=== PATIENT | male | born 1940 | race Caucasian/White ===

== ENCOUNTER → 2017-07-15 | Outpatient (CLI) | payer OTHER, MEDICARE, BC ==
[~2017-07-15] MED LIST: ACET-2146 PO; ASP325 PO; ATOR20TA22 PO; CA C1TAB6 PO; CA C1TAB93 PO; CALC-649 PO; CEL100 PO; CELE-1 PO; DICL100G39 TP; FINA5TAB67 PO; FLU IM; FLUT16SP19 NS; FOLI-48 PO; FURO-45 PO; GABA-547 PO; HCTZ25 PO; HYDR-3087 PO; HYDR-393 PO; HYDR-4305 PO; LAN30PT PO; LANS15CA28 PO; LANS15CA38 PO; LEVO150T72 PO; LEVO150T78 PO; LEVO75TA68 PO; LIDO10VI16 INTRA-ART; LOS50 PO; LOSA-57 PO; MAGN250T25 PO; MELO-207 PO; MULT-27 PO; MULT-772 PO; NAP250 PO; OMEP-125 PO; OXYB10TA16 PO; OXYB5TAB86 PO; POTA15TA; POTA8TAB41 PO; PRE5 PO; PRED-1 PO; PRED20TA6 PO; PROM-110 PO; PROM12.556 PO; SIMV-54 PO; TAMS0.4C70 PO; TOLT4CAP13 PO; TRAM-420 PO; TRI40I IART; VIT E PO; VIT1TABL91 PO; VITA-175 PO; [UNRECOGNIZED DRUG - CODE] PO
--- NOTE | 2017-07-15 11:06 | RADIOLOGY IMAGING REPORT ---
FACILITY: [facility] PATIENT NAME: Sammy Downey : 1940 MR: [id number] V: [id number] EXAM DATE: ORDERING PHYSICIAN: SEA RUIZ TECHNOLOG[place] [facility] [place]my [place] : 1940 Visit/Account:[id number] Date of Sevice: 07/15/2017 EXAMINATION: MRI lumbar spine without IV contrast HISTORY: Low back pain and left lower extremity radiculopathy. COMPARISON: Lumbar and thoracic spine MRIs from 07/20/2013. TECHNIQUE: Multi-planar, multi-sequence lumbar spine MRI was performed without intravenous contrast administration. FINDINGS: Alignment: Grade 1 anterolisthesis at T12-L1 measuring 4 mm, and grade 1 retrolisthesis at L2-3 measu ring 4 mm, unchanged. Vertebral marrow signal: Mild degenerative endplate changes at a few levels. Distal thoracic cord: Increased T2/STIR signal in the thoracic cord at T10-11 is more prominent. Conus: negative, terminates at T12-L1. Cauda equina: There is clumping of the cauda equina nerve roots in the thecal sac from L4 inferiorly. Paravertebral soft tissues: Negative. Visualized abdominal and pelvic structures: There is mild bilateral renal atrophy. Simple appearing bilateral renal cysts are incompletely visualized, and are unchanged. Disc spaces: There is disc desiccation of the visualized spine. Lower thoracic spine: Mild concentric disc bulge, bilateral facet hypertrophy and ligamentum flavum l axity at T10-11 causes moderate to severe central canal stenosis and moderate right foraminal stenosi s. Mild disc bulge and facet hypertrophy at T11-12 without significant central canal or foraminal st enosis. Anterolisthesis with posterior bony spurring and a mild disc bulge eccentric to the right an d bilateral facet hypertrophy at T12-L1 causes moderate to severe central canal stenosis, moderate le ft and moderate to severe right foraminal stenosis, slightly progressed. L1-2: Disc space narrowing with anterior bony spurring and a mild disc bulge eccentric to the left. Bilateral facet hypertrophy and ligamentum flavum laxity. Moderate central canal stenosis, mild left lateral recess stenosis, mild right and moderate to severe left foraminal stenosis, unchanged. L2-3: Bilateral L2 laminectomies. Disc space narrowing with anterior bony spurring, posterior bony s purring and a mild concentric disc bulge. Mild bilateral lateral recess stenosis and mild bilateral foraminal stenosis without residual central canal stenosis, unchanged. L3-4: Partial bilateral L3 laminectomies. Moderate concentric disc bulge with bilateral facet hypert rophy. Moderate right and moderate to severe left foraminal stenosis has progressed. No significant central canal stenosis. L4-5: Partial bilateral L4 laminectomies. Mild disc space narrowing with posterior bony spurring and a disc bulge eccentric to the left. Bilateral facet hypertrophy. Moderate right lateral recess kimberley nosis, moderate left and moderate to severe right foraminal stenosis, without significant central can al stenosis, unchanged. L5-S1: Mild disc space narrowing with posterior bony spurring and a mild disc bulge eccentric to the right, bilateral facet hypertrophy and ligamentum flavum laxity. Moderate right lateral recess steno sis, mild left and moderate to severe right foraminal stenosis, unchanged. IMPRESSION: 1. Multilevel degenerative disc disease and facet arthropathy has progressed at several levels, part icularly in the lower thoracic spine at T10-11 and T12-L1, where there is now moderate to severe spin al stenosis. Please see the findings for description of individual level disease. 2. 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 3. Posterior decompression from L2 through L4, unchanged. 4. Grade 1 degenerative anterolisthesis at T12-L1, and grade 1 degenerative retrolisthesis at L2-3, unchanged. Report Dictated By: Elda Pedroza MD at 07/15/2017 10:40 AM Report E-Signed By: lEda Pedroza MD at 07/15/2017 11:02 AM WSN:[id number]
== END ==
LOC: MRI 01:31
DX: M51.34 Other intervertebral disc degeneration, thoracic region (principal); M48.04 Spinal stenosis, thoracic region; G95.89 Other specified diseases of spinal cord; M51.26 Other intervertebral disc displacement, lumbar region; M51.36 Other intervertebral disc degeneration, lumbar region
CPT/HCPCS: 72148

== ENCOUNTER → 2017-08-12 | Outpatient (CLI) | payer MEDICARE, BC ==
--- NOTE | 2017-08-12 15:03 | RADIOLOGY IMAGING REPORT ---
FAC[facility] PATIENT NAME: Sammy Downey : 1940 MR: [id number] V: [id number] EXAM DATE: ORDERING PHYSICIAN: YVES SWARTZ TECHNOLOGIST: Location: [facility] - [place] Patient: Sammy Downey : 1940 Visit/Account:[id number] Date of Sevice: 08/12/2017 ABDOMEN PELVIS ESWL CYSTO W/O Indication: Kidney stones COMPARISON STUDIES: CT abdomen and pelvis 08/14/2016. TECHNIQUE: Noncontrast CT lung bases to the pubic symphysis obtained. One of the following dose optimization techniques was utilized in the performance of this exam: autom ated exposure control; adjustment of the mA and/or kV according to the patient's size; or use of an i terative reconstruction technique. Specific details can be referenced in the facility's radiology CT exam operational policy. FINDINGS: Liver / gallbladder: The liver demonstrates normal attenuation. Gallbladder is unremarkable. Pancreas: Pancreas is unremarkable. Spleen: Normal. Adrenal glands: Normal. Kidneys: There are 2 nonobstructing calculi in the right kidney, largest measures 2 mm in the lower pole. This is unchanged from the prior study. There is a 6.4 cm simple cyst in the left kidney. Th ere is no right or left hydronephrosis. In the distal right ureter there is a 4 mm calculus, unchang ed. There is no evidence of hydroureter. Left ureter is normal. Pelvis: Beam hardening artifact is seen from right and left total hip arthroplasties. Bowel: There is no focal abnormality in the small bowel or colon. Vessels: Negative Musculoskeletal / Body wall: Right left total hip arthroplasties are unchanged. Lymph node assessment: Negative Lower chest: Negative IMPRESSION: 1. Right-sided nephrolithiasis, unchanged from 08/14/2016. 2. Nonobstructing calculus in the distal thirds of the right ureter, stable. 3. Right and left total hip arthroplasties. Report Dictated By: Giancarlo Jane at 08/12/2017 2:51 PM Report E-Signed By: Giancarlo Jane at 08/12/2017 2:58 PM WSN:[email or web address]
== END ==
LOC: CT 02:13
PROVIDERS: ATTEND Urology
DX: N20.0 Calculus of kidney (principal); N20.1 Calculus of ureter; Z98.1 Arthrodesis status
CPT/HCPCS: 74176

== ENCOUNTER 2017-08-19 01:24 | Day surgery (SDC) | payer MEDICARE, BC ==
--- NOTE | 2017-08-18 20:46 | HISTORY AND PHYSICAL ---
DATE OF ADMISSION: August 19, 2017 CHIEF COMPLAINT Right ureteral and kidney stones. HISTORY OF PRESENT ILLNESS Patient is a 76-year-old white male who was originally noted to have bilateral kidney stones in the spring. He underwent extracorporeal shock wave lithotripsy of his left side at that time. In recent follow-up x-ray he was noted to have three small stones in the right kidney, the largest measuring 4 x 2 mm in the lower pole. However, he was also noted to have a 4 x 3 mm stone in the distal left ureter approximately 2-3 cm above the ureteral orifice. There was no significant hydronephrosis on this film. His previous year's films were reviewed and it also appeared that this stone was in a similar location at that time. He has been experiencing some more recent low back pain in that area, but no true flank pain. He also denies any dysuria or hematuria. The films were shown to the patient's and he has elected to undergo urologic intervention with a ureteroscopy for this ureteral calculus. Discussion of treatment of the kidney stone on that side was also undertaken. PAST MEDICAL HISTORY * Hypertension. * Gastroesophageal reflux disease. * Hypercholesterolemia. * Benign prostatic hyperplasia. * Degenerative joint disease. * Kidney stones. PAST SURGICAL HISTORY * Bilateral hip replacement. * Right rotator cuff. * Low back surgery times three. * Bilateral knee replacement. * Left hip revision. * EGD and colonoscopy. * Left extracorporeal shock wave lithotripsy, September 2013. ALLERGIES ADHESIVE TAPE and OXYCONTIN. CURRENT MEDICATIONS * Simvastatin. * Losartan and hydrochlorothiazide. * Finasteride. * Tamsulosin. * Meclizine. * Celebrex. * Potassium citrate. * Omeprazole. * Hydrocodone. * Oxybutynin. SOCIAL HISTORY Patient is and lives in [place], [place]. Denies illicit drug use. FAMILY HISTORY Noncontributory. REVIEW OF SYSTEMS Patient denies productive cough, nausea, vomiting, fever, chills, gross hematuria, change in weight, chest pains, chronic headaches or bleeding disorder. PHYSICAL EXAMINATION GENERAL: Patient is an elderly white male in no acute distress. HEET: Normocephalic, atraumatic. CHEST: Clear to auscultation bilaterally. CARDIOVASCULAR: Regular rate and rhythm. ABDOMEN: Soft, nontender. No masses are palpated. GENITOURINARY: Exam is deferred to the OR. EXTREMITIES: Exam without clubbing, cyanosis or edema. NEUROLOGIC: Exam is nonfocal. IMPRESSION A 76-year-old white male with a history of right renal and ureteral calculi. PLAN We will perform anesthetic cystoscopy, right ureteroscopy, stone manipulation and possible stent placement. MTDD
[~2017-08-19] VITALS: Ht 175.3 cm; Wt 87.5 kg
[~2017-08-19 01:24] MED LIST changes: +BACL-1 PO; +CEPH-13 PO; +CHOL200025 PO; +FEXO-72 PO; +GABA-549 PO; +HYDR-385 PO; +LEVO-3 PO; +MONT10TA PO; +SIMV-49 PO
[2017-08-19] MEDS ORDERED: PROPOFOL EMUL(*) 10MG/ML 20 ML 20 ML ONE (07:48)
[2017-08-19] MEDS ORDERED: ONDANSETRON 4 MG/2 ML VIAL ONE (07:48)
[2017-08-19] MEDS ORDERED: DEXAMETHASONE SOD 4 MG/ML VIAL ONE (07:48)
[2017-08-19] MEDS ORDERED: LIDOCAINE MPF 1% 5 ML VIAL ONE (07:48)
[2017-08-19] MEDS ORDERED: LIDOCAINE/SOD BICARB 8.4% SYR ID ONE (07:50)
[2017-08-19] MEDS ORDERED: ceFAZolin(*) 1 GM VIAL 1 GM in NS(*) 0.9% 100 ML ADDVANT BAG 100 ML IV ONE (07:50)
[2017-08-19] MEDS ORDERED: NORMOSOL R SOLN(*) 1000 ML BAG 1,000 ML IV PRN (07:50)
[2017-08-19] MEDS ORDERED: MIDAZOLAM 2 MG/2 ML VIAL IVP ONE (07:50)
[2017-08-19] MEDS ORDERED: FAMOTIDINE 20 MG TAB PO ONE (07:50)
[2017-08-19] MEDS ORDERED: fentaNYL CITR 100 MCG/2 ML AMP ONE (08:02)
[2017-08-19 08:04] VITALS: BP 145/104
[2017-08-19] MEDS ORDERED: HYDROCORTISONE 1% CR 28.35 GM TP ONE (08:35)
[2017-08-19] MEDS ORDERED: IOPAMIDOL-200 50 ML VIAL IS ONE (08:35)
[2017-08-19] MEDS ORDERED: BELLADONNA ALK/OPIUM 60MG SUPP PR ONE (08:35)
[2017-08-19] MEDS ORDERED: HYDR-4309 PO (10:18)
[2017-08-19] MEDS ORDERED: DOCU-416 PO (10:19)
--- NOTE | 2017-08-19 15:01 | RADIOLOGY IMAGING REPORT ---
FACILITY: [facility] PATIENT NAME: Sammy Downey : 1940 MR: [id number] V: [id number] EXAM DATE: ORDERING PHYSICIAN: YVES SWARTZ TECHNOLOGIST: Location: [facility] - [place] Patient: Sammy Downey : 1940 Visit/Account:[id number] Date of Sevice: 08/19/2017 Exam type: RETROGRADE PYELOGRAM History: RIGHT URETERAL/ KIDNEY STONES Comparison: CT August 12, 2017 Findings: 13 intraoperative spot views over the abdomen were submitted for interpretation. The total fluorosco py time was 38 seconds. The fluoroscopy dose was 33 mGray. The initial images demonstrate radiopaqu e densities over the inferior right renal shadow. Multiple images demonstrate placement of a right u reteral stent. Radiopaque densities are not identified over the renal shadows on the final images. IMPRESSION: 1. As above Report Dictated By: Arina Lynne MD at 08/19/2017 2:52 PM Report E-Signed By: Arina Lynne MD at 08/19/2017 2:56 PM WSN:[email or web address]
--- NOTE | 2017-08-19 17:25 | OPERATIVE REPORT 1 ---
EVENT DATE: August 19, 2017 SURGEON: Abdoul Root MD ANESTHESIOLOGIST: Ángel Bailey MD ANESTHESIA: General anesthetic. PREOPERATIVE DIAGNOSIS Right distal ureteral calculus. POSTOPERATIVE DIAGNOSIS Right distal ureteral calculus. PROCEDURES PERFORMED 1. Anesthetic cystoscopy. 2. Right retrograde pyelogram. 3. Right semi-rigid uteroscopy with laser fragmentation of stone. 4. Grasping and removing of stone fragments. 5. Right internal double-J ureteral stent placement. ESTIMATED BLOOD LOSS Minimal. INTRAVENOUS FLUIDS Crystalloid. DRAINS A 6-Portuguese x 26 cm Contour stent on the right. PATHOLOGY Stone fragments sent for permanent analysis. COMPLICATIONS None. CONDITION The patient was taken to the recovery room awake and in stable condition. STATEMENT OF MEDICAL NECESSITY The patient is a 76-year-old white male with a history of kidney stones who is status post lithotripsy on the left side several years ago and now noted to have a right distal ureteral calculus which has been there for several years likely on review of his prior CT scans. He had no significant hydronephrosis on his scan; however, he has been having increasing low back pain with mild flank discomfort as well. He is now being brought to the operating room for planned ureteroscopy with stone manipulation and removal. He is also noted to have three stones in the right kidney, the largest measuring 4 x 2 mm in the lower pole. DESCRIPTION OF OPERATION PERFORMED The patient was brought to the operating room. After general anesthetic was obtained, he was placed in the dorsal lithotomy position and prepped and draped in the usual sterile manner. Anesthetic cystoscopy was performed with the 21- Portuguese rigid sheath and both 30- and 70-degree lenses. He had a normal- appearing pendulous bulbar membranous urethra. His prostatic urethra revealed mild trilobar hypertrophy and a mildly friable bladder neck. His bladder mucosa was normal without evidence of tumor or lesions. He had slit-like ureteral orifices, both effluxing clear urine. At this point, a right retrograde pyelogram was performed using an 8-Portuguese cone-tipped catheter, injecting 7 mL of contrast material in a retrograde manner. By my intraoperative interpretation, he appeared to have a 5 mm filling defect approximately 3 cm above the ureteral orifice consistent with his stone on the CT scan. The rest of the collecting system appeared normal without evidence of other filling defects or evidence of obstruction. Following this, a 6-Portuguese access catheter was used to attain access to the distal ureter. A 0.035 wire was advanced in the lumen of the access catheter, past the stone up to the upper pole calyx. The access catheter was removed, and this wire was used to place an 8/10 dilating system. A second wire was placed alongside the first wire inside the 10 sheath. One wire was secured to the drapes as a safety wire , and then the next wire was used as the working wire. It was backloaded into the Phelps semi-rigid scope. Semi-rigid ureteroscopy was performed over the working wire. The stone was encountered approximately 3 to 4 cm inside the ureteral orifice. It was peraza in appearance with a smooth surface and irregular shape with several projections along the surface. At this point, the laser fiber was introduced, and a holmium in situ laser lithotripsy of the stone was performed under direct vision. The laser fiber was placed directly on the stone surface. The stone was noted to have an outer shell of this syrup filterer peraza surface and a darker material inside which was significantly more hard than the outer shell. After several minutes of laser treatment, the stone was fragmented into several small portions. At this point, the Tricep radial grasping forceps was then introduced, and three of the larger fragments were removed and brought into the bladder. The scope was advanced up the ureter to just above the vessels, at which point increasing resistance was encountered. Pull-out ureteroscopy at this point did not reveal any evidence of remaining stone fragments. There was some mild irritation at the previous area of the stone and stone treatment. There was no evidence of ureteral injury. At this point, the scope was removed. The safety wire was then backloaded into the cystoscope, and then this was used to place a 6-Portuguese x 26 cm Contour stent. The wire was removed. He was noted to have good curling in the renal pelvis by fluoroscopy and good curling in the bladder by direct vision. At this point, the scope was then reintroduced, and several of the large fragments in the base of the bladder were grasped and collected for analysis. The remaining portion of the bladder was irrigated free of any stone fragments, and these were collected in the drain on the drapes. On reintroduction, he appeared to have a moderately friable bladder neck which had several small venous oozers. Therefore, a 20-Portuguese three-way Donovan catheter was placed with 30 mL in the balloon. He was begun on bladder irrigation with normal saline which rapidly cleared over the course of 500 mL. The irrigation port was then plugged. He was placed to gravity drainage. A B and O suppository was given per rectum. He was awakened in the operating room and taken to the recovery area in stable condition. PLAN The plan will be to allow the patient to be discharged home from the recovery room after his Donovan catheter is removed. He is being sent home on Armona and Colace. We will plan to have him return to the operating room in approximately two to four weeks for stent removal with possible flexible ureteroscopy and/or ESWL of the right stones. KENDALL
== END 2017-08-19 10:45 | disposition home or self-care (01) ==
LOC: OR 01:24
PROVIDERS: ATTEND Urology
DX: N20.1 Calculus of ureter (principal)
CPT/HCPCS: 52317; 52332; 74420; 81001; 82365; 87088; 88300; A9270; J0690; J1100; J2001; J2405; J2704; J3010; J7050; Q9966; A4346; C1758; C1769; C1894; C2617

== ENCOUNTER 2017-09-06 00:31 | Day surgery (SDC) | payer MEDICARE, BC ==
--- NOTE | 2017-09-03 14:33 | HISTORY AND PHYSICAL ---
DATE OF ADMISSION: September 06, 2017 CHIEF COMPLAINT Kidney stones. HISTORY OF PRESENT ILLNESS The patient is a 76-year-old white male who has a history of bilateral kidney stones in 2013. He was recently noted to have a left distal ureteral calculus as well as having two stones in his right kidney. On August 19, he was taken to the operating room and underwent ureteroscopy with fragmentation and removal of this distal stone and placement of a ureteral stent. He is now being brought to the operating room for planned stent removal, possible ureteroscopy, and/or extracorporeal shock wave lithotripsy as indicated. PAST MEDICAL HISTORY 1. Hypothyroidism. 2. Hypertension. 3. Gastroesophageal reflux disease. 4. Hypercholesterolemia. 5. BPH. 6. Degenerative joint disease. 7. Kidney stones. 8. Meniere disease. PAST SURGICAL HISTORY 1. Bilateral hip replacement. 2. Right rotator cuff. 3. Low back surgery times three. 4. Bilateral knee replacement. 5. Left hip revision surgery. 6. EGD and colonoscopy. 7. Left extracorporeal shock wave lithotripsy September 2013. 8. Right ureteroscopy August 19, 2017. ALLERGIES OXYCODONE and ADHESIVE TAPE. CURRENT MEDICATIONS 1. Baclofen. 2. Levothyroxine. 3. Simvastatin. 4. Losartan. 5. Hydrochlorothiazide. 6. Finasteride. 7. Tamsulosin. 8. Meclizine. 9. Celebrex. 10. Potassium citrate. 11. Omeprazole. 12. Hydrocodone. 13. Oxybutynin. SOCIAL HISTORY The patient is and lives in [place], [place]. FAMILY HISTORY Noncontributory. REVIEW OF SYSTEMS The patient denies chest pain, shortness of breath, nausea, vomiting, fever, chills, productive cough, liver disease, or bleeding disorder. PHYSICAL EXAMINATION GENERAL: The patient is a well-developed, well-nourished, elderly male in no acute distress. HEENT: Normocephalic, atraumatic. CHEST: Clear to auscultation bilaterally. CARDIOVASCULAR: Regular rate and rhythm. ABDOMEN: Soft, nontender. No masses are palpated. GENITOURINARY: Deferred to the OR. EXTREMITIES: Without clubbing or cyanosis. NEUROLOGIC: Nonfocal. IMPRESSION A 76-year-old white male with a history of kidney stones who is recently status post right ureteroscopy with removal of distal stone and current indwelling ureteral stent. He has two kidney stones remaining in the right kidney, a 4 x 2 mm in the lower pole and a 2 x 2 in the mid pole. PLAN We will perform anesthetic cystoscopy, removal of stent, with possible ureteroscopy and/or extracorporeal shock wave lithotripsy. KENDALL
[~2017-09-06] VITALS: Ht 167.6 cm; Wt 86.6 kg
[~2017-09-06 00:31] MED LIST changes: +ASPI-1471 PO; +DOCU-416 PO; +HYDR-4309 PO; +PHEN200T32 PO
[2017-09-06 06:23] VITALS: BP 131/72
[2017-09-06] MEDS ORDERED: ceFAZolin(*) 1 GM VIAL 1 GM in NS(*) 0.9% 100 ML ADDVANT BAG 100 ML IV ONE (06:30)
[2017-09-06] MEDS ORDERED: LIDOCAINE/SOD BICARB 8.4% SYR ID ONE (06:30)
[2017-09-06] MEDS ORDERED: NORMOSOL R SOLN(*) 1000 ML BAG 1,000 ML IV PRN (06:30)
[2017-09-06] MEDS ORDERED: MIDAZOLAM 2 MG/2 ML VIAL IVP ONE (06:30)
[2017-09-06] MEDS ORDERED: PROPOFOL EMUL(*) 10MG/ML 20 ML 40 ML ONE (07:26)
[2017-09-06] MEDS ORDERED: ROCURONIUM BROM 10 MG/ML 10 ML ONE (07:26)
[2017-09-06] MEDS ORDERED: ONDANSETRON 4 MG/2 ML VIAL ONE (07:26)
[2017-09-06] MEDS ORDERED: LIDOCAINE MPF 1% 5 ML VIAL ONE (07:26)
[2017-09-06] MEDS ORDERED: KETOROLAC 30 MG/ML VIAL ONE (07:26)
[2017-09-06] MEDS ORDERED: DEXAMETHASONE SOD PHOS 10MG/ML ONE (07:26)
[2017-09-06] MEDS ORDERED: SUCCINYLCHOL CHL 200MG/10ML VL ONE (07:30)
[2017-09-06] MEDS ORDERED: NS 0.9% 3000 ML IRRIGATION BAG IR ONE (07:53)
[2017-09-06] MEDS ORDERED: PHENYLEPHRINE 10 MG/1 ML VIAL ONE (07:56)
[2017-09-06] MEDS ORDERED: NS 0.9% 20 ML SDV 20 ML ONE (07:57)
[2017-09-06] MEDS ORDERED: SUGAMMADEX SOD 500 MG/5 ML SDV ONE (08:31)
[2017-09-06] MEDS ORDERED: fentaNYL CITR 100 MCG/2 ML AMP ONE (08:50)
[2017-09-06 09:23] VITALS: BP 123/79
[2017-09-06 09:43] VITALS: BP 141/94
[2017-09-06 09:45] VITALS: BP 134/115
--- NOTE | 2017-09-06 10:34 | RADIOLOGY IMAGING REPORT ---
FAC[place] [facility] [place] PATIENT NAME: Sammy Downey : 1940 MR: [id number] V: [id number] EXAM DATE: ORDERING PHYSICIAN: YVES SWARTZ TECHNOLOGIST: Location: [facility] Patient: Sammy Downey : 1940 Visit/Account:[id number] Date of Sevice: 09/06/2017 CT ABDOMEN PELVIS W/O CON HISTORY: preop- stones TECHNIQUE: Axial images acquired through the abdomen/pelvis. Coronal and sagittal reformatting also performed. No IV contrast administered. Dose Lowering Technique One of the following dose optimization techniques was utilized in the performance of this exam: Autom ated exposure control; adjustment of the mA and/or kV according to the patient's size; or use of an i terative reconstruction technique. Specific details can be referenced in the facility's radiology C T exam operational policy. COMPARISON: August 12, 2017 FINDINGS: Visualized lung bases: Pleural parenchymal scarring in the lung bases and small calcified granulomas appear unchanged Hepatobiliary: Negative. Spleen: Negative. Adrenals: Negative. Pancreas: Negative. Kidneys ureters and bladder: There is a right ureteral stent in place. There are two nonobstructing calculi lower pole of the right kidney largest measuring approximately 3 mm. no calculi identified i n the left renal collecting system. There is a 6.4 cm left renal cyst .. No evidence of hydronephr osis or hydroureter Genitalia: Pelvic contents not ideally seen due to numerous artifacts from bilateral hip arthroplast ies GI: There is a moderate size hiatal hernia Vessels/spaces/nodes: Negative. Bones/soft tissues: Bilateral hip arthroplasties are present. There are extensive spondylotic fan es in the lumbar spine Additional findings: None pertinent. IMPRESSION: Right ureteral stent 2. Nonobstructing calculi lower pole of the right kidney with largest measuring 3 mm. Appropriateness scarring in the lung bases unchanged Moderate-sized hiatal hernia Additional chronic findings as described Report Dictated By: Arina Lynne MD at 09/06/2017 10:13 AM Report E-Signed By: Arina Lynne MD at 09/06/2017 10:30 AM WSN:[id number]
--- NOTE | 2017-09-08 15:00 | OPERATIVE REPORT 1 ---
EVENT DATE: September 06, 2017 SURGEON: Abdoul Root MD ANESTHESIOLOGIST: Issac Tinoco MD ANESTHESIA: General anesthetic. PREOPERATIVE DIAGNOSIS Right renal calculus with indwelling right ureteral stent. POSTOPERATIVE DIAGNOSIS Right renal calculus with indwelling right ureteral stent. PROCEDURES PERFORMED 1. Right lower pole extracorporeal shock wave lithotripsy. 2. Anesthetic cystoscopy with grasping and removal of right double-J ureteral stent. ESTIMATED BLOOD LOSS Minimal. INTRAVENOUS FLUIDS Crystalloids. DRAINS None. COMPLICATIONS None. CONDITION The patient was taken to the recovery room awake and in stable condition. STATEMENT OF MEDICAL NECESSITY The patient is a 76-year-old white male with a history of kidney stones who was taken to the operating room on the of last month for right distal ureteral calculi. At that time, the stone was fragmented and removed. The ureteral stent was left in place. He is now being returned to the operating room for stent removal with treatment of right lower pole kidney stone measuring approximately 5 x 3 mm in size. DESCRIPTION OF OPERATION PERFORMED The patient was brought to the operating room. After general anesthetic was obtained, he was placed supine on the lithotripsy table. The oblong stone in the right lower pole was visualized with two-plane fluoroscopy and placed in the lithotripsy crosshairs. Treatment was begun at a power setting of two and gradually increased to a power setting of three over the first 300 shocks. A three-minute pause was then performed before resuming treatment. The power was gradually increased to a power setting of eight over the course of the first 1000 shocks. Intermittent two-plane fluoroscopy was used to ensure the crosshairs remained on the stone and stone fragment pile. The patient received a total of 3000 shocks to the right lower pole stone in conclusion, which no further fragments could be identified. After extracorporeal shock wave lithotripsy was complete, the patient was placed in the dorsal lithotomy position and prepped and draped in the usual sterile manner. Anesthetic cystoscopy was performed with the 21-Syriac rigid Phelps sheath and 30-degree lens. He had a normal pendulous bulbar membranous and prostatic urethra. Upon entering his bladder, he had Pyridium-stained urine and a small amount of blood emanating from the right ureteral orifice. The stent was seen emanating from the right ureteral orifice and was in a good position. There were no other bladder anomalies. His stent was grasped at its distal end and gently removed intact. The patient was awakened in the operating room and taken to the recovery area in stable condition. PLAN The plan will be to allow the patient to be discharged home today on his continuing Flomax as well as his regular pain medicines. We will plan to see him in the Urology Clinic in approximately four to six weeks with a followup low -dose CT scan to evaluate treatment results and ensure he has no residual hydronephrosis. KENDALL
== END 2017-09-06 09:20 | disposition home or self-care (01) ==
LOC: OR 00:31
PROVIDERS: ATTEND Urology
DX: N20.0 Calculus of kidney (principal)
CPT/HCPCS: 50590; 52310; 74176; J0330; J0690; J1100; J1885; J2001; J2370; J2405; J2704; J3010; J7050

== ENCOUNTER → 2017-10-05 | Outpatient (CLI) | payer MEDICARE, BC ==
--- NOTE | 2017-10-05 10:28 | RADIOLOGY IMAGING REPORT ---
FACILITY: [facility] - [place] PATIENT NAME: Sammy Downey : 1940 MR: [id number] V: [id number] EXAM DATE: ORDERING PHYSICIAN: YVES SWARTZ TECHNOLOGIST: Location: [facility] [place] Patient: Sammy Downey : 1940 Visit/Account:[id number] Date of Sevice: 10/05/2017 ABDOMEN PELVIS ESWL CYSTO W/O HISTORY: Kidney stones TECHNIQUE: Axial images acquired through the abdomen/pelvis. Coronal and sagittal reformatting also performed. No IV contrast administered. Dose Lowering Technique One of the following dose optimization techniques was utilized in the performance of this exam: Autom ated exposure control; adjustment of the mA and/or kV according to the patient's size; or use of an i terative reconstruction technique. Specific details can be referenced in the facility's radiology C T exam operational policy. COMPARISON: August 12, 2017 FINDINGS: Visualized lung bases: Negative. Hepatobiliary: The liver is incompletely imaged although the visualized portion appears unremarkable Spleen: Negative. Adrenals: Negative. Pancreas: Negative. Kidneys ureters and bladder: No calculi are seen in the right renal collecting system. There is no e vidence of right hydronephrosis or hydroureter. There is a hypoattenuating process seen along the po sterior aspect of the right kidney not appreciated on the prior study may represent a subcapsular hem atoma. Left renal cyst unchanged. No evidence of left-sided urolithiasis, hydronephrosis or hydroureter . There may be several tiny calcifications within the bladder. Pelvic contents not ideally evaluated due to artifacts from bilateral hip arthroplasties Genitalia: Coarse calcification is noted within the prostate GI: Incompletely imaged is a hiatal hernia Vessels/spaces/nodes: Negative. Bones/soft tissues: Bilateral hip arthroplasties. Extensive spondylotic changes of the lumbar spine Additional findings: None pertinent. IMPRESSION: No demonstration of urolithiasis at this time There is a hypoattenuating process seen along the posterior aspect the right kidney not appreciated o n the prior study and may represent a subcapsular hematoma. Possible tiny calcination occasions within the bladder. Pelvic contents not ideally visualized due t o artifacts from bilateral hip arthroplasties Hiatal hernia Report Dictated By: Arina Lynne MD at 10/05/2017 10:08 AM Report E-Signed By: Arina Lynne MD at 10/05/2017 10:23 AM WSN:[email or web address]
== END ==
LOC: CT 00:58
PROVIDERS: ATTEND Urology
DX: K44.9 Diaphragmatic hernia without obstruction or gangrene (principal); M47.896 Other spondylosis, lumbar region; Z96.643 Presence of artificial hip joint, bilateral; N40.2 Nodular prostate without lower urinary tract symptoms
CPT/HCPCS: 74176

== ENCOUNTER → 2017-12-09 | Outpatient (CLI) | payer MEDICARE, BC | LOC: US 01:22 | PROVIDERS: ATTEND Internal Medicine | DX: I34.0 Nonrheumatic mitral (valve) insufficiency (principal); I07.1 Rheumatic tricuspid insufficiency | CPT/HCPCS: 93306 ==

== ENCOUNTER → 2018-08-09 | Outpatient (CLI) | payer MEDICARE, BC ==
[~2018-08-09] MED LIST changes: -HYDR-4305 PO; -HYDR-4309 PO; +HYDR-627 PO; +HYDR-653 PO
--- NOTE | 2018-08-09 10:07 | RADIOLOGY IMAGING REPORT ---
FACILITY: [facility] - [place] PATIENT NAME: Sammy Downey : 1940 MR: [id number] V: [id number] EXAM DATE: ORDERING PHYSICIAN: YVES SWARTZ TECHNOLOGIST: [facility] Patient: Sammy Downey : 1940 Visit/Account:[id number] Date of Sevice: 08/09/2018 EXAMINATION: CT abdomen without IV contrast CT pelvis without IV contrast HISTORY: Kidney stones. TECHNIQUE: Spiral scan was through the abdomen and pelvis without intravenous contrast. Sagittal a nd coronal reformatted images are also submitted. One of the following dose optimization techniques was utilized in the performance of this exam: Autom ated exposure control; adjustment of the mA and/or kV according to the patient's size; or use of an i terative reconstruction technique. Specific details can be referenced in the facility's radiology C T exam operational policy. COMPARISON: 10/05/2017. 08/10/2017. FINDINGS: Lower chest: Small hiatal hernia. Mild scarring or atelectasis in the lung bases. Please note that without intravenous contrast, sensitivity to detection of parenchymal disease is ledezma ited. Liver / biliary: Negative. Pancreas: Negative. Spleen: Negative. Adrenal glands: Negative. Kidneys: Stable 6.3 x 5.7 cm cyst in the left kidney. Interval resolution of the right perinephric h ematoma compared with 10/05/2017. No calcified stones or hydronephrosis. Pelvic structures: Not well seen secondary to extensive streak artifact related to the bilateral h ip arthroplasty. No definite abnormality. Bowel: Small hiatal hernia. Otherwise negative. Peritoneum / retroperitoneum / mesenteries: Negative. Vessels: Mild aortoiliac calcification without aneurysm. Lymph nodes: Stable small partially calcified lymph node posterior to the pancreatic head. Musculoskeletal / Body wall: Multilevel degenerative disc disease and facet hypertrophy in the thorac olumbar spine. Bilateral hip arthroplasty. L2-L4 laminectomy. Grade 1 anterior listhesis of T12 ov er L1 and retrolisthesis of L2 over L3. Stable 8 mm sclerotic lesion in the right side of the L2 zuleima tebral body IMPRESSION: 1. No calcified kidney stones or hydronephrosis. Interval resolution of the small right perinephric hematoma compared to 10/05/2017. 2. Otherwise no acute abnormality in the abdomen or pelvis. 3. See above report for additional chronic findings. Report Dictated By: Gopi Hopkins MD at 08/09/2018 9:35 AM Report E-Signed By: Gopi Hopkins MD at 08/09/2018 10:01 AM WSN:[email or web address]
== END ==
LOC: CT 01:13
PROVIDERS: ATTEND Urology
DX: K44.9 Diaphragmatic hernia without obstruction or gangrene (principal); I25.10 Atherosclerotic heart disease of native coronary artery without angina pectoris; Z96.643 Presence of artificial hip joint, bilateral
CPT/HCPCS: 74176

== ENCOUNTER → 2018-08-18 | Outpatient (CLI) | payer MEDICARE, BC ==
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
== END ==
LOC: CT 13:42
PROVIDERS: ATTEND Physician Assistant
DX: S09.90XS Unspecified injury of head, sequela (principal)
CPT/HCPCS: 70450

== ENCOUNTER → 2018-11-03 | Outpatient (CLI) | payer MEDICARE, BC ==
[~2018-11-03] MED LIST changes: +AZEL205.; +CALC-1046
--- NOTE | 2018-11-04 16:10 | RT HOLTER TEST ---
FACILITY: [facility] PATIENT NAME: MIS COVINGTON : [id number] MR: [id number] V: [id number] EXAM DATE: ORDERING PHYSICIAN: BONNY OTTO TECHNOLOGIST: TRUDY Hook-up date: 2018-11-03 12:33:00 Duration: 24:33:00 Test Indications: DIZZINESS, BRADYCARDY Medications: N/A [id number] QRS complexes 1018 Ventricular ectopics which represent 1 % of total QRS comp. 10 Supraventricular ectopics which represent <1 % of total QRS comp. * Paced QRS complexes which represent % of total QRS comp. VENTRICULAR ECTOPY 990 Isolated 51 Bigeminal Cycles 14 Couplets 0 Runs 0 Beats in Runs * Beats LONGEST at * BPM at :: -- * Beats FASTEST at * BPM at :: -- SUPRAVENTRICULAR ECTOPY 7 Isolated 0 Couplets 1 Runs 3 Beats in Runs 3 Beats LONGEST at 81 BPM at 04:44:35 2018-11-04 3 Beats FASTEST at 81 BPM at 04:44:35 2018-11-04 HEART RATES 38 MIN at 04:28:06 2018-11-04 69 AVG 143 MAX at 11:05:03 2018-11-04 LONGEST RR 2.664 secs at 06:07:08 2018-11-04 S-T LEVELS Channel 1 -12.800 mm MIN at 12:33:00 2018-11-03 -12.800 mm MAX at 12:33:00 2018-11-03 Channel 2 -12.800 mm MIN at 12:33:00 2018-11-03 -12.800 mm MAX at 12:33:00 2018-11-03 Channel 3 -12.800 mm MIN at 12:33:00 2018-11-03 -12.800 mm MAX at 12:33:00 2018-11-03 There had one patient triggered event that correlated with a sinus tachycardia at 123 beats per jyoti te (bpm). The patient was predominantly in a sinus rhythm with occasional ventricular ectopy and rare supraventricular ectopy. There were 6 asym ptomatic dropped QRS beats after a P wave that appear to be a second degree AV block type 2. They resulted in a 2.5-2.7 second pause. The [facility] heart rate was 69 bpm. Confirmed by SHARAD CASTILLO ([id number]) on 11/04/2018 4:10:15 PM Referred By: Overread By: SHARAD CASTILLO
== END ==
LOC: RESP 02:12
PROVIDERS: ATTEND Internal Medicine
DX: I49.3 Ventricular premature depolarization (principal)
CPT/HCPCS: 93225; 93226

== ENCOUNTER → 2019-02-13 | Outpatient (CLI) | payer MEDICARE, BC ==
[~2019-02-13] MED LIST changes: -OMEP-125 PO; +OMEP-126 PO; -PROM12.556 PO; +PROM12.557 PO
--- NOTE | 2019-02-13 15:08 | RADIOLOGY IMAGING REPORT ---
FACILITY: [facility] - [place] PATIENT NAME: Sammy Downey : 1940 MR: [id number] V: [id number] EXAM DATE: ORDERING PHYSICIAN: YVES SWARTZ TECHNOLOGIST: Location: [facility] Patient: Sammy Downey : 1940 Visit/Account:[id number] Date of Sevice: 02/13/2019 CT ABDOMEN PELVIS W/O CON HISTORY: Left flank pain, upper abdomen pain, history of kidney stones TECHNIQUE: Axial images acquired through the abdomen/pelvis. Coronal and sagittal reformatting also performed. No IV contrast administered.Dose Lowering Technique One of the following dose optimization techniques was utilized in the performance of this exam: Autom ated exposure control; adjustment of the mA and/or kV according to the patient's size; or use of an i terative reconstruction technique. Specific details can be referenced in the facility's radiology C T exam operational policy. COMPARISON: August 09, 2018 FINDINGS: Visualized lung bases: Pleural parenchymal scarring is again noted in the lung bases Hepatobiliary: Negative. Spleen: Negative. Adrenals: Negative. Pancreas: Negative. Kidneys ureters and bladder: 6.2 cm cyst upper pole the left kidney again noted. 5 mm cortical hyper density upper pole of the right kidney also appears unchanged. There is no demonstration of nephroli thiasis, hydronephrosis or hydroureter. This mild perinephric stranding on the left similar to the p rior study Genitalia: Prostate gland is enlarged impinging upon the floor the bladder GI: There is a moderate size hiatal hernia. There appears to be lobular fat collection within the w all of the hernia although this appears to been present since July 2016 Vessels/spaces/nodes: Negative. Bones/soft tissues: Extensive spondylotic changes of the lumbar spine Additional findings: None pertinent. IMPRESSION: No demonstration of urolithiasis, hydronephrosis or hydroureter There is mild perinephric stranding on the left similar to the prior study Left renal cyst unchanged 5 mm cortical hyperdensity upper pole the right kidney appears stable Moderate size hiatal hernia Report Dictated By: Arina Lynne MD at 02/13/2019 2:06 PM Report E-Signed By: Arina Lynne MD at 02/13/2019 2:59 PM WSN:[email or web address]
== END ==
LOC: CT 00:52
PROVIDERS: ATTEND Urology
DX: N20.0 Calculus of kidney (principal); K44.9 Diaphragmatic hernia without obstruction or gangrene
CPT/HCPCS: 74176